=== PATIENT | female | born 1960 | race Caucasian/White ===

== ENCOUNTER 2020-05-04 12:37 | Inpatient (IN) | payer BC, MEDICAID ==
[~2020-05-04] VITALS: Ht 152.4 cm; Wt 58.3 kg
[2020-05-04 13:34] LABS: BASOPHILS % (AUTO) 1 % (0-1); EOSINOPHILS % (AUTO) 1 % (1-7); LYMPHOCYTES % (AUTO) 15 % (22-44); MEAN CORPUSCULAR HEMOGLOBIN 31.3 pg (27.0-34.8); MEAN PLATELET VOLUME 12.2 fL (7.4-10.4); MONOCYTES % (AUTO) 7 % (2-9); NEUTROPHILS % (AUTO) 76 % (42-75); PLATELET COUNT 247 x10^3/uL (130-400); RED BLOOD COUNT 5.56 x10^6/uL (3.82-5.3); RED CELL DISTRIBUTION WIDTH 12.6 % (9.6-15.2)
[2020-05-04 13:54] LABS: ANION GAP 12 mmol/L (5-15); CALCIUM 9.9 mg/dL (8.5-10.1); CHLORIDE 94 mmol/L (98-107)
[2020-05-04 13:55] LABS: ALANINE AMINOTRANSFERASE 17 U/L (12-78); ALBUMIN 4.1 g/dL (3.4-5.0); ALKALINE PHOSPHATASE 171 U/L (45-117); BILIRUBIN,TOTAL 0.6 mg/dL (0.2-1.0); CREATININE 1.15 mg/dL (0.55-1.02); TOTAL PROTEIN 7.9 g/dL (6.4-8.2)
--- NOTE | 2020-05-04 14:00 | NUR ---
SIGNAL SUPERVISOR: PT TO ROOM FROM LOBBY
[2020-05-04 14:20] LABS: MD MORPH REVIEW ONLY
[2020-05-04 14:21] LABS: <PLATELET ESTIMATE> ADEQUATE; <RBC MORPHOLOGY> NORMAL; LARGE PLATELETS 1+
--- NOTE | 2020-05-04 14:36 | NUR ---
PT C/O INCREASED THIRST AND URINATION. PT AMBULATED TO RESTROOM WITH STEADY GAIT TO PROVIDE URINE SAMPLE. UA ORDERED PER PROTOCOL AND SENT TO LAB.
[2020-05-04] MEDS ORDERED: INSULIN LISPRO SINGLE DOSE, ER SQ-INSULIN ONE (14:57)
[2020-05-04] MEDS ORDERED: INSULIN REGULAR 100 UNITS/ML, 3ML VIAL SQ-INSULIN ONE (15:00)
[2020-05-04] MEDS ORDERED: SODIUM CHLORIDE 0.9% 1,000 ML IV ONE (15:00)
--- NOTE | 2020-05-04 15:03 | NUR ---
PIV PLACED, IVF RUNNING. TERMITE CONTROL SERVICE REPRESENTATIVE PER AUG.
[2020-05-04 15:15] LABS: MICROSCOPIC NOT IND
--- NOTE | 2020-05-04 15:58 | NUR ---
RECEIVED N/O FOR CT.
[2020-05-04] MEDS ORDERED: OMNIPAQUE 350 MG/ML, 100ML BOTTLE ONE (16:31)
--- NOTE | 2020-05-04 16:32 | NUR ---
PT BACK FROM CT. PT RESTING COMFORTABLY ON GURNEY. KERWIN.
[2020-05-04 16:33] LABS: ACETONE, SERUM Large (80mg/dL) (Negative)
--- NOTE | 2020-05-04 16:50 | NUR ---
ALL RESULTS ARE BACK AT THIS TIME. CHART UP FOR RECHECK.
[2020-05-04] MEDS ORDERED: PROMETHAZINE 25 MG/ML, 1ML IM PRN (17:30)
[2020-05-04] MEDS ORDERED: BISACODYL 10 MG SUPP PR PRN (17:30)
[2020-05-04] MEDS ORDERED: METOCLOPRAMIDE 5 MG/ML, 2ML IVPush PRN (17:30)
[2020-05-04] MEDS ORDERED: morphine SULFATE 10 MG/ML, 1ML IVPush PRN (17:30)
[2020-05-04] MEDS ORDERED: POLYETHYLENE GLYCOL 17 GM PACKET PO PRN (17:30)
[2020-05-04] MEDS ORDERED: ONDANSETRON 2MG/ML, 2ML IVPush PRN (17:30)
--- NOTE | 2020-05-04 17:47 | NUR ---
REPORT GIVEN TO PATRICIA GOMEZ RN.
[2020-05-04] MEDS ORDERED: NICOTINE 14MG/24 HR PATCH.TD24 TD ONE (18:00)
[2020-05-04] MEDS ORDERED: SODIUM CHLORIDE 0.45% 1,000 ML IV SCH (18:00)
[2020-05-04 18:08] LABS: ANION GAP 7 mmol/L (5-15); CALCIUM 8.5 mg/dL (8.5-10.1); CHLORIDE 103 mmol/L (98-107)
[2020-05-04 18:11] LABS: CREATININE 0.74 mg/dL (0.55-1.02)
[2020-05-04] MEDS: LACTATED RINGERS 1,000 ML IV SCH ×2 (18:25→23:40)
[2020-05-04] MEDS: ENOXAPARIN 40 MG/0.4 ML SQ SCH (18:28)
[2020-05-04 18:35] VITALS: BP 104/69
[2020-05-04] MEDS: INSULIN LISPRO 100 UNITS/ML, PEN SQ-INSULIN SCH ×2 (18:46→23:39)
[2020-05-04 18:51] VITALS: BP 118/86
[2020-05-04] MEDS: FAMOTIDINE 20 MG/2 ML IVPush SCH (20:53)
[2020-05-04] MEDS ORDERED: INSULIN LISPRO 100 UNITS/ML, PEN SQ-INSULIN SCH (21:00)
[2020-05-04 22:01] LABS: ANION GAP 5 mmol/L (5-15); CALCIUM 8.6 mg/dL (8.5-10.1); CHLORIDE 104 mmol/L (98-107); CREATININE 0.53 mg/dL (0.55-1.02)
[2020-05-05 00:16] VITALS: BP 104/68
[2020-05-05 02:13] LABS: ANION GAP 8 mmol/L (5-15); CALCIUM 8.3 mg/dL (8.5-10.1); CHLORIDE 104 mmol/L (98-107)
[2020-05-05] MEDS: LACTATED RINGERS 1,000 ML IV SCH (04:50)
[2020-05-05] MEDS: HYDROcodone/APAP 5/325 TABLET PO PRN ×2 (04:57→16:15)
[2020-05-05] MEDS: INSULIN LISPRO 100 UNITS/ML, PEN SQ-INSULIN SCH ×3 (04:57→16:06)
[2020-05-05 05:55] LABS: BASOPHILS % (AUTO) 1 % (0-1); EOSINOPHILS % (AUTO) 3 % (1-7); LYMPHOCYTES % (AUTO) 35 % (22-44); MEAN CORPUSCULAR HEMOGLOBIN 30.9 pg (27.0-34.8); MEAN CORPUSCULAR HGB CONC 33.8 g/dL (32.4-35.8); MEAN PLATELET VOLUME 11.7 fL (7.4-10.4); MONOCYTES % (AUTO) 9 % (2-9); NEUTROPHILS % (AUTO) 53 % (42-75); PLATELET COUNT 176 x10^3/uL (130-400); RED BLOOD COUNT 4.64 x10^6/uL (3.82-5.3); RED CELL DISTRIBUTION WIDTH 12.7 % (9.6-15.2)
[2020-05-05 06:00] LABS: MD NO
[2020-05-05] MEDS ORDERED: POTASSIUM CHLORIDE 20 MEQ TAB.ER.PRT PO ONE (06:00)
[2020-05-05] MEDS ORDERED: MAGNESIUM SULFATE PMX 2GM/50ML 50 ML IV ONE (06:00)
[2020-05-05] MEDS ORDERED: POTASSIUM PHOSPHATE 44 MEQ in SODIUM CHLORIDE 0.9% 500 ML IV ONE (06:00)
[2020-05-05 06:03] LABS: ANION GAP 8 mmol/L (5-15); CALCIUM 8.5 mg/dL (8.5-10.1); CHLORIDE 104 mmol/L (98-107)
[2020-05-05 07:40] VITALS: BP 106/68
[2020-05-05] MEDS: FAMOTIDINE 20 MG/2 ML IVPush SCH ×2 (08:21→20:04)
[2020-05-05] MEDS: SENNA/DOCUSATE TABLET PO SCH (08:22)
[2020-05-05] MEDS: metFORMIN 500 MG TABLET PO SCH ×2 (08:22→16:06)
[2020-05-05 09:52] LABS: ANION GAP 6 mmol/L (5-15); CALCIUM 8.5 mg/dL (8.5-10.1); CHLORIDE 107 mmol/L (98-107); CREATININE 0.51 mg/dL (0.55-1.02)
[2020-05-05 13:52] VITALS: BP 116/74
[2020-05-05 13:58] LABS: ANION GAP 6 mmol/L (5-15); CALCIUM 7.9 mg/dL (8.5-10.1); CHLORIDE 103 mmol/L (98-107)
[2020-05-05 13:59] LABS: CREATININE 0.58 mg/dL (0.55-1.02)
[2020-05-05] MEDS: ENOXAPARIN 40 MG/0.4 ML SQ SCH (16:06)
[2020-05-05 18:32] VITALS: BP 119/79
[2020-05-06] MEDS: INSULIN LISPRO 100 UNITS/ML, PEN SQ-INSULIN SCH ×2 (00:02→06:04)
[2020-05-06 01:07] VITALS: BP 101/61
[2020-05-06 06:55] VITALS: BP 126/80
[2020-05-06 07:18] LABS: BASOPHILS % (AUTO) 0 % (0-1); EOSINOPHILS % (AUTO) 4 % (1-7); LYMPHOCYTES % (AUTO) 29 % (22-44); MEAN CORPUSCULAR HEMOGLOBIN 31.1 pg (27.0-34.8); MEAN CORPUSCULAR HGB CONC 34.5 g/dL (32.4-35.8); MEAN PLATELET VOLUME 11.2 fL (7.4-10.4); MONOCYTES % (AUTO) 10 % (2-9); NEUTROPHILS % (AUTO) 57 % (42-75); PLATELET COUNT 166 x10^3/uL (130-400); RED BLOOD COUNT 4.59 x10^6/uL (3.82-5.3); RED CELL DISTRIBUTION WIDTH 12.2 % (9.6-15.2)
[2020-05-06 07:27] LABS: CALCIUM 8.8 mg/dL (8.5-10.1); CHLORIDE 107 mmol/L (98-107)
[2020-05-06 07:31] LABS: ANION GAP 7 mmol/L (5-15); CREATININE 0.47 mg/dL (0.55-1.02)
[2020-05-06 07:39] LABS: MD NO
[2020-05-06] MEDS ORDERED: METF500T PO (08:55)
[2020-05-06] MEDS: SENNA/DOCUSATE TABLET PO SCH (09:40)
[2020-05-06] MEDS: metFORMIN 500 MG TABLET PO SCH (09:40)
[2020-05-06] MEDS: FAMOTIDINE 20 MG/2 ML IVPush SCH (09:40)
== END 2020-05-06 11:31 | disposition left against medical advice (07) | DRG 638 ==
LOC: ED 16:40 → EDIP 17:26 → 3N 18:11
PROVIDERS: ADMIT Family Medicine; ATTEND Family Medicine
DX: E11.00 Type 2 diabetes mellitus with hyperosmolarity without nonketotic hyperglycemic-hyperosmolar coma (NKHHC) (principal); E87.1 Hypo-osmolality and hyponatremia; D75.1 Secondary polycythemia; E86.0 Dehydration; E11.65 Type 2 diabetes mellitus with hyperglycemia; F17.200 Nicotine dependence, unspecified, uncomplicated; Z72.89 Other problems related to lifestyle; Z79.4 Long term (current) use of insulin; Z90.49 Acquired absence of other specified parts of digestive tract
CPT/HCPCS: 36415; 74177; 80048; 80053; 81003; 82010; 82800; 82962; 83036; 83690; 83735; 83930; 84100; 84443; 85025; 96360; 96361; G0378; J1650; Q9967; J1815; J2270; J3475; J7030; J7040; J7120